=== PATIENT | male | born 1945 | race Two or more races ===

== ENCOUNTER 2020-11-20 10:13 | Observation (INO) | payer MEDICARE, OTHER ==
[~2020-11-20] VITALS: Ht 185.4 cm; Wt 78.1 kg
[~2020-11-20 10:13] MED LIST: ALBU90OI INH; Aspir 8181 MG PO; IPRAT-ALBUT 0.5-3 ML INH
[2020-11-20] MEDS ORDERED: ATOR40TA PO (10:56)
--- NOTE | 2020-11-20 16:27 | NUR ---
Pt received from Roxann LEVY, pt with at bedside b/p elevated 203/106 Dr. Gann notified and orders received. Pt is SB at 56. Pt right radial site wnl. He denies pain. He voided prior to last b/p. He is cooperative. IV NS with 150 ray. Pt will be transported to icu soon.
--- NOTE | 2020-11-20 16:30 | NUR ---
REPORT CALLED TO ZENON DOWELER, TO ASSUME PT CARE.
--- NOTE | 2020-11-20 18:48 | NUR ---
PT ARRIVAL ON UNIT... PT ARRIVED ON UNIT AT 1705, PT IS S/P ANGIO W/STENTS TO THE PROXIMAL LAD AND 1ST OM. PT HAS RIGHT RADIAL ACCESS W/TR BAND. NO SWELLING BLEEDING OR HEMATOMA NOTED AT THE SITE. ARM SLING IN PLACE. PT IS HYPERTENSIVE PER REPORT AND VS, PROVIDER WAS CALLED AND NOTIFIED, NEW ORDERS OBTAINED FOR HYDRALAZINE 10MG Q4 PRN FOR SBP >150. PT HAS DEMENTIA AND IS VERY FORGETFUL AND IMPULSIVE, PT'S AND CAREGIVER AT THE BEDSIDE. PT DENIES CHEST PAIN/PRESSURE AT THIS TIME. PT HAS BEEN VOIDING SEVERAL TIMES PER HOUR VERY SMALL AMOUNTS AT A TIME, A CONDOM CATH WAS PLACED TO SEE IF THIS WOULD HELP THE PT NOT JUMP OUT OF BED. PT'S PLANS TO STAY THE NIGHT TONIGHT OKAY PER KILN BURNER. WILL CONTINUE TO MONITOR.
--- NOTE | 2020-11-20 19:00 | NUR ---
ASSUMED CARE ASSUMED CARE OF PATIENT. AWAKE AND ALERT. ORIENTED TO SELF AND PLACE AND SOMEWHAT TO EVENTS. PT IS FORGETFUL AND HAS CONFUSED CONVERSATION. HX OF DEMENTIA. IS AT BEDSIDE FOR SUPPORT. MONITOR SHOWS SR, RATE 60s. BP 170s/90s. RA SATS STABLE AND RESPIRATIONS ARE EVEN AND UNLABORED. DENIES C/O PAIN OR DISCOMFORT. TR BAND IN PLACE TO RIGHT WRIST. SITE IS SOFT AND IS WITHOUT BLEEDING OR HEMATOMA. ARM BOARD IN PLACE. RIGHT HAND IS SLIGHTLY PALE BUT WARM. PT DENIES NUMBNESS OR TINGLING. WILL START TO DEFLATE TR BAND. CONDOM CATH IN PLACE- CLEAR YELLOW URINE. SEE SHIFT ASSESSMENT FOR FULL ASSESSMENT.
--- NOTE | 2020-11-20 22:59 | NUR ---
TR BAND TR BAND IS COMPLETELY DEFLATED AT THIS TIME. SITE IS SOFT AND WITHOUT HEMATOMA, BRUISING, OR BLEEDING NOTED. ARM BOARD IN PLACE.
--- NOTE | 2020-11-21 | NUR ---
TR BAND TR BAND OFF AT THIS TIME. SITE IS SOFT- NO BLEEDING, NO HEMATOMA. SMALL AMOUNT OF BRUISING NOTED. ARM BOARD IS IN PLACE.
--- NOTE | 2020-11-21 05:57 | NUR ---
SHIFT SUMMARY NO ACUTE CHANGES. SLEPT VERY LITTLE DURING NOC. CONTINUES TO HAVE PERIODS OF CONFUSION AND DISORIENTATION. PT IS WORRIED THIS MORNING THAT HE'S "GOING TO ALF." DOES NOT REORIENT EASILY. IS AT BEDSIDE. PT IS SOMETIMES ACCUSATORY AND ANGRY TOWARDS HER. OCCASIONALLY ATTEMPTS TO CLIMB OUT OF BED. CONTINUES WITH FREQUENT VOIDS IN SMALL AMOUNTS. DENIES C/O PAIN OR DISCOMFORT. REPOSITIONS SELF IN BED. RIGHT RADIAL SITE WITH OPSITE INTACT. SMALL AMOUNT OF BRUISING NOTED, BUT SITE IS SOFT AND WITHOUT BLEEDING OR HEMATOMA. ARM BOARD REMAINS IN PLACE. VSS. RA SATS STABLE. WILL REPORT TO ONCOMING RN WHEN AVAILABLE.
[2020-11-21] MEDS ORDERED: AMLO5 PO (09:24)
[2020-11-21] MEDS ORDERED: TICA90TA PO (09:24)
--- NOTE | 2020-11-21 09:45 | NUR ---
DISCHARGE INSTRUCTIONS AND HOME CARE GONE OVER WITH PT AND . INSTRUCTED ON NEW MEDICATION AND WERE PRESCRIPTIONS WERE CALLED INTO. ALL QUESTIONS ANSWERED. BELONGINGS GATHERED AND TRANSPORTED OUT TO AWAINTING VEHICLE BY MARIA M LEVY.
--- NOTE | 2020-11-21 10:23 | NUR ---
1000: LAC PIC REMOVED, PT DRESSED AND PLACED IN WHEELCHAIR. PT'S GRABBED ALL OF PT'S BELONGINGS. PT WHEELED TO PARKING LOTS AND SECURELY PLACED IN FRONT PASSENGER SEAT.
== END 2020-11-21 10:00 | disposition home or self-care (01) ==
LOC: MHTC 10:13 → ICUW 16:03 → MHTC 16:04 → ICUW 16:04
PROVIDERS: ADMIT Internal Medicine Cardiovascular Disease
DX: I25.10 Atherosclerotic heart disease of native coronary artery without angina pectoris (principal); I11.0 Hypertensive heart disease with heart failure; I50.9 Heart failure, unspecified; I65.21 Occlusion and stenosis of right carotid artery; J44.9 Chronic obstructive pulmonary disease, unspecified; E78.5 Hyperlipidemia, unspecified; Z82.49 Family history of ischemic heart disease and other diseases of the circulatory system; Z79.82 Long term (current) use of aspirin; Z87.891 Personal history of nicotine dependence
CPT/HCPCS: 85347; 93458; 94640; 96374; 99152; 99153; A9270; C1725; C1769; C1874; C1887; C1894; C9600; G0378; J0360; J1644; J2250; J3010; J3246; J7030; J7050; Q9967